=== PATIENT | male | born 1980 | race American Indian/Alaskan Native ===

== ENCOUNTER 2020-08-26 23:50 | Emergency (ER) | payer OTHER, MEDICAID ==
[2020-08-27] MEDS ORDERED: ASPIRIN 325 MG TAB PO ONE (00:10)
[2020-08-27 00:32] LABS: Basophils # (Auto) 0.1 K/mm3 (0.0-0.1); Basophils % (Auto) 0.9 % (0.0-1.8); Eosinophils # (Auto) 0.1 K/mm3 (0.0-0.4); Eosinophils % (Auto) 1.6 % (0.0-4.3); Lymphocytes % (Auto) 26.4 % (13.4-35.0); Mean Corpuscular HGB Conc 35 % (32-34); Mean Corpuscular Volume 84 fl (84-94); Monocytes # (Auto) 0.6 K/mm3 (0.0-0.8); Monocytes % (Auto) 8.3 % (0.0-7.3); Platelet Count 204 K/mm3 (140-440); Red Blood Count 5.11 M/mm3 (3.65-5.03); Red Cell Distribution Width 14.1 % (13.2-15.2)
[2020-08-27 00:58] LABS: Alanine Aminotransferase 30 units/L (7-56); Albumin 4.6 g/dL (3.9-5); BUN/Creatinine Ratio 12; Blood Urea Nitrogen 14 mg/dL (9-20); Calcium 8.9 mg/dL (8.4-10.2); Hemolysis Index 10
--- NOTE | 2020-08-27 00:58 | XRay Report ---
CHEST 2 VIEWS INDICATION / CLINICAL INFORMATION: Chest pain. COMPARISON: None available. FINDINGS: SUPPORT DEVICES: None. HEART / MEDIASTINUM: No significant abnormality. LUNGS / PLEURA: Clear lungs. No significant pleural effusion. No pneumothorax. ADDITIONAL FINDINGS: No significant additional findings. IMPRESSION: 1. No acute abnormality of the chest. Signer Name: Klaus Laird MD Signed: 08/27/2020 12:54 AM Workstation Name: [id number]
--- NOTE | 2020-08-27 07:48 | Emergency Department Report ---
HPI - General Chief Complaint: Chest Pain Time Seen by Provider: 08/27/20 07:33 - HPI HPI: Room 24 The patient is a 40-year-old male present with a chief complaint of chest pain. The patient states since yesterday he has had a constant dull left-sided substernal chest pain associated with slight shortness of breath. Patient denies nausea/vomiting or diaphoresis. Patient denies pleurisy or fever. Patient denies any recent flights/long car trips. Patient states she had a normal stress test last year but has never had a cardiac catheterization. Patient currently gets chest pain score 3-4/10 ED Past Medical Hx - Past Medical History Previous Medical History?: Yes Hx Hypertension: Yes - Surgical History Past Surgical History?: No - Family History Family history: no significant - Social History Smoking Status: Never Smoker Substance Use Type: None (Denies illicit drug use), Alcohol (Occasional) - Medications Home Medications: Home Medications Medication Instructions Recorded Confirmed Last Taken Type Famotidine [Pepcid] 20 mg PO BID #20 tablet 08/27/20 Unknown Rx traMADoL [Ultram] 50 mg PO Q6HR PRN #10 tablet 08/27/20 Unknown Rx ED Review of Systems ROS: Stated complaint: CHEST PAIN Other details as noted in HPI Constitutional: denies: diaphoresis, fever Eyes: denies: eye pain ENT: denies: throat pain Respiratory: cough, shortness of breath Cardiovascular: chest pain Endocrine: no symptoms reported Gastrointestinal: denies: nausea, vomiting Genitourinary: denies: dysuria Musculoskeletal: denies: arthralgia Neurological: denies: headache Physical Exam - Physical Exam Physical Exam: GENERAL: The patient is well-developed well-nourished male lying on stretcher not appearing to be in acute distress. [] HEENT: Normocephalic. Atraumatic. Extraocular motions are intact. Patient has moist mucous membranes. NECK: Supple. Trachea midline CHEST/LUNGS: Clear to auscultation. There is no respiratory distress noted. HEART/CARDIOVASCULAR: Regular. There is no tachycardia. There is no gallop rub or murmur. ABDOMEN: Abdomen is soft, nontender. Patient has normal bowel sounds. There is no abdominal distention. SKIN: There is no rash. There is no edema. There is no diaphoresis. NEURO: The patient is awake, alert, and oriented. The patient is cooperative. The patient has no focal neurologic deficits. The patient has normal speech MUSCULOSKELETAL: There is no evidence of acute injury. ED Medical Decision Making - Lab Data Result diagrams: 08/27/20 00:12 08/27/20 00:12 Laboratory Tests 08/27/20 08/27/20 08/27/20 00:12 00:12 03:08 WBC 7.8 RBC 5.11 H Hgb 15.0 Hct 43.0 MCV 84 MCH 29 MCHC 35 H RDW 14.1 Plt Count 204 Lymph % (Auto) 26.4 Door % (Auto) 8.3 H Eos % (Auto) 1.6 Baso % (Auto) 0.9 Lymph # (Auto) 2.0 Door # (Auto) 0.6 Eos # (Auto) 0.1 Baso # (Auto) 0.1 Seg Neutrophils % 62.8 Seg Neutrophils # 4.9 D-Dimer Sodium 140 Potassium 4.1 Chloride 101.3 Carbon Dioxide 30 Anion Gap 13 BUN 14 Creatinine 1.2 Estimated GFR > 60 BUN/Creatinine Ratio 12 Glucose 87 Calcium 8.9 Total Bilirubin 0.30 AST 20 ALT 30 Alkaline Phosphatase 71 Troponin T < 0.010 < 0.010 Total Protein 7.0 Albumin 4.6 Albumin/Globulin Ratio 1.9 08/27/20 08:05 WBC RBC Hgb Hct MCV MCH MCHC RDW Plt Count Lymph % (Auto) Door % (Auto) Eos % (Auto) Baso % (Auto) Lymph # (Auto) Door # (Auto) Eos # (Auto) Baso # (Auto) Seg Neutrophils % Seg Neutrophils # D-Dimer < 135.00 Sodium Potassium Chloride Carbon Dioxide Anion Gap BUN Creatinine Estimated GFR BUN/Creatinine Ratio Glucose Calcium Total Bilirubin AST ALT Alkaline Phosphatase Troponin T Total Protein Albumin Albumin/Globulin Ratio - EKG Data -: EKG Interpreted by Me EKG shows normal: sinus rhythm Rate: normal - EKG Data When compared to previous EKG there are: previous EKG unavailable Interpretation: nonspecific ST-T wave soren (T wave inversion in lead III) - Radiology Data Radiology results: report reviewed (Chest x-ray), image reviewed (Chest x-ray) interpreted by me: Chest x-ray-no focal infiltrates, no pneumothorax. No foreign body seen [facility] [address] [place] [address] XRay Report Signed Patient: LENNOX BLAKE MR#: [id number] : 1980 Acct:[id number] Age/Sex: 40 / M ADM Date: 08/26/20 Loc: ED Attending Dr: Ordering Physician: ANDERS TOLEDO MD Date of Service: 08/27/20 Procedure(s): XR chest routine 2V Accession Number(s): [id number] cc: ANDERS TOLEDO MD Fluoro Time In Minutes: CHEST 2 VIEWS INDICATION / CLINICAL INFORMATION: Chest pain. COMPARISON: None available. FINDINGS: SUPPORT DEVICES: None. HEART / MEDIASTINUM: No significant abnormality. LUNGS / PLEURA: Clear lungs. No significant pleural effusion. No pneumothorax. ADDITIONAL FINDINGS: No significant additional findings. IMPRESSION: 1. No acute abnormality of the chest. Signer Name: Klaus Laird MD Signed: 08/27/2020 12:54 AM Workstation Name: [id number] Transcribed By: [place] Dictated By: Klaus Laird MD Electronically Authenticated By: Klaus Laird MD Signed Date/Time: 08/27/2053 DD/ TD/TT: Print Cancel - Differential Diagnosis ACS, PE, pericarditis, GERD Critical care attestation.: If time is entered above; I have spent that time in minutes in the direct care of this critically ill patient, excluding procedure time. ED Disposition Clinical Impression: Atypical chest pain Disposition: DC-01 TO HOME OR SELFCARE Is pt being admited?: No Does the pt Need Aspirin: Yes Condition: Stable Instructions: Nonspecific Chest Pain, Adult Additional Instructions: Return to the emergency department should you develop worsening symptoms, inability to tolerate food or liquids, high fever or any other concerns Prescriptions: Famotidine [Pepcid] 20 mg PO BID #20 tablet traMADoL [Ultram] 50 mg PO Q6HR PRN #10 tablet PRN Reason: Pain Referrals: CATALINA SMYTH MD [Staff Physician] - 3-5 Days [facility] [Provider Group] - 3-5 Days Time of Disposition: 09:31 Heart Score - HEART Score History: Slightly suspicious EKG: Non-specific Age: < 45 Risk factors: 1-2 risk factors Troponin: < normal limit HEART Score: 2 - EKG Read Time Time EKG Completed: 23:58 EKG Read Time: 00:03
[2020-08-27 10:49] VITALS: BP 139/94
--- NOTE | 2020-08-27 10:52 | Electrocardiograph Report ---
[facility] Test Date: 2020-08-26 Test Time: 23:58:53 Pat Name: LENNOX BLAKE Department: Room: Gender: M Chart Computer: KIAH : 1980 Requested By: JANEL IGLESIAS Order Number: [id number] Reading MD: Cameron Bueno Measurements Intervals [place] Rate: 85 P: 30 HI: 150 QRS: 62 QRSD: 81 T: 13 QT: 321 QTc: 381 Interpretive Statements Sinus rhythm ST elev, probable normal early repol pattern No previous ECG available for comparison Electronically Signed On 08-27-2020 10:51:45 EDT by Cameron Bueno
== END 2020-08-27 09:30 | disposition home or self-care (01) ==
LOC: ED 23:50
DX: R07.89 Other chest pain (principal); R06.02 Shortness of breath; I10 Essential (primary) hypertension; Z79.899 Other long term (current) drug therapy
CPT/HCPCS: 36415; 71046; 80053; 84484; 85025; 85379; 93005